=== PATIENT | female | born 1960 | race Caucasian/White ===

== ENCOUNTER → 2021-04-13 | Outpatient (CLI) | payer OTHER ==
[~2021-04-13] MED LIST: BENADRYL 25MG C25 MG PO; PREDNISONE20 MG PO; SINGULAIR10 MG PO
== END ==
LOC: EXRD 15:28
DX: M25.531 Pain in right wrist (principal); M19.031 Primary osteoarthritis, right wrist
CPT/HCPCS: 73100

== ENCOUNTER → 2021-04-18 | Outpatient (CLI) | payer OTHER | LOC: EXRD 14:22 | DX: M79.672 Pain in left foot (principal) | CPT/HCPCS: 73630 ==